=== PATIENT | male | born 1995 | race Caucasian/White ===

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

== ENCOUNTER 2017-03-05 06:16 | Emergency (ER) | payer BC ==
[~2017-03-05] VITALS: Ht 182.9 cm; Wt 60.0 kg
[2017-03-05 06:18] VITALS: BP 118/71; PULSE 78; RESP 16; TEMP 97.9; O2SAT 97
[2017-03-05] MEDS ORDERED: predniSONE 20 MG TAB PO ONE (07:15)
[2017-03-05] MEDS ORDERED: RESP: ALBUTEROL 2.5 MG/3 ML NEB (SCH) INH ONE ×2 (07:15→08:00)
[2017-03-05] MEDS ORDERED: VENTAER INH (07:17)
[2017-03-05] MEDS ORDERED: PRED-503 PO (07:17)
[2017-03-05] MEDS ORDERED: BENZ100 PO (07:17)
--- NOTE | 2017-03-05 07:18 | PD ---
HPI Chief Complaint: Cold / Flu Symptoms Time Seen by Provider: 07:07 Travel History International Travel<30 days: No Contact w/Intl Traveler<30days: No Traveled to known affect area: No History of Present Illness HPI 21-year-old male presents emergency Department with complaint of chest congestion, shortness of breath, nasal congestion, cough since yesterday. Unknown fever. Denies ear pain, sore throat. Denies chest pain. Denies abdominal pain, vomiting. Symptoms are mild in severity. Has not taken any medications or drainage from its alleviate symptoms. No known aggravating or relieving factors. Reports tobacco use. Denies significant past medical history. No known allergies. Has no other medical complaints. No other modifying factors or associated signs and symptoms. PFSH Past Medical History Asthma: Yes (OUTGROWN) Cancer: No Developmental Delay: No Diminished Hearing: No Glaucoma: No Musculoskeletal: Yes Neurologic: Yes Immunizations Current: No Past Surgical History Genitourinary Surgery: Yes (LEFT INGUINAL HERNIA REPAIR 2002) Neurologic Surgery: No Oral Surgery: Yes (ROOT CANAL RIGHT UPPER FRONT TOOTH ) Other Surgery: Yes Social History Alcohol Use: No Tobacco Use: No (never) Substance Use: Yes Allergies-Medications (Allergen,Severity, Reaction): Coded Allergies: No Known Allergies (Verified Adverse Reaction, Unknown, 03/05/17) Reported Meds & Prescriptions Reported Meds & Active Scripts Active Tessalon Perles (Benzonatate) 100 Mg Cap 100 Mg PO TID PRN 3 Days Ventolin Hfa 18 GM Inh (Albuterol Sulfate) 90 Mcg/Act Aer 2 Puff INH Q4-6H PRN Deltasone (Prednisone) 20 Mg Tab 40 Mg PO DAILY 4 Days start 03/06/2017 Review of Systems Except as stated in HPI: all other systems reviewed are Neg Physical Exam Narrative GENERAL: Well-nourished, well-developed male patient, in no acute distress; afebrile, nontoxic-appearing SKIN: Warm and dry. HEAD: Atraumatic. Normocephalic. EYES: Pupils equal and round. No scleral icterus. No injection or drainage. ENT: Mucosa pink and moist. No erythema or exudates. No uvular edema. No uvular , palatal, or tonsillar deviation. Airway patent. Nares without nasal blood. EARS: Bilateral pinnae and external canals appear within normal limits. Bilateral tympanic membranes without erythema, dullness or perforation. NECK: Trachea midline. No lymphadenopathy. CARDIOVASCULAR: Regular rate and rhythm. No murmur appreciated. RESPIRATORY: No accessory muscle use. Lungs with Wheezing throughout to auscultation. Breath sounds equal bilaterally. No retractions or tachypnea. No Audible wheezing noted. GASTROINTESTINAL: Abdomen soft, non-tender, nondistended. Hepatic and splenic margins not palpable. Bowel sounds are active 4 quadrants. MUSCULOSKELETAL: No obvious deformities. No clubbing. No cyanosis. No edema. NEUROLOGICAL: Awake and alert. Oriented 3. No obvious cranial nerve deficits. Motor grossly within normal limits. Normal speech. Moves all extremities. 5/5 strength to all extremities. PSYCHIATRIC: Appropriate mood and affect; insight and judgment normal. Data Data Last Documented VS Vital Signs Date Time Temp Pulse Resp B/P (MAP) Pulse Ox O2 Delivery O2 Flow Rate FiO2 03/05/17 06:40 Room Air 03/05/17 06:18 97.9 78 16 118/71 (87) 97 Orders Orders Chest, Single Ap (03/05/17 07:05) Prednisone (Deltasone) (03/05/17 07:15) Albuterol Neb (Albuterol Neb) (03/05/17 07:15) Influenzae A/B Antigen (03/05/17 07:05) Albuterol Neb (Albuterol Neb) (03/05/17 08:00) MDM Medical Decision Making Medical Screen Exam Complete: Yes Emergency Medical Condition: Yes Medical Record Reviewed: Yes Differential Diagnosis Bronchitis, pneumonia, influenza, viral illness Narrative Course 21-year-old male with symptoms of bronchitis. He denies history of asthma, although I reviewed his medical record showing history of asthma. Patient has wheezing throughout on auscultation of the lungs. He is in no acute distress and without retractions or tachypnea. Oxygen saturation is 97% on room air. Reports tobacco use. Albuterol nebulizer, chest x-ray, Deltasone, influenza ordered. 0747: Influenza negative. Patient reports improvement in symptoms. He still has some mild wheezing throughout on auscultation of the lungs. Second albuterol nebulizer ordered. 0815: As x-ray with no acute findings. Ventolin, Tessalon Perles, Deltasone prescribed for home. Instructed patient to follow up with primary care provider. Patient verbalizes understanding and agreement with treatment plan. Patient is medically cleared and stable for discharge. Discussed reasons to return to the emergency department. Patient agrees with treatment plan. The patients vital signs are stable and the patient is stable for outpatient follow- up and treatment. Patient discharged home, stable and in no acute distress. Diagnosis Primary Impression: Acute bronchitis Qualified Codes: J20.9 - Acute bronchitis, unspecified Referrals: [facility] Primary Care Physician Patient Instructions: Acute Bronchitis (ED), General Instructions, Safe Use of Cough and Cold Medicines (ED) Departure Forms: Tests/Procedures, Work Release Enter return to work date: Mar 06, 2017 Additional Instructions: Use Albuterol inhaler as prescribed Take oral steroids as prescribed and complete full course Use Tessalon Perles as prescribed to decrease coughing spasms [id number] decongestants or antihistamines as directed and as needed for symptom management Your cough can last 4-6 weeks Drink plenty of fluids to prevent dehydration Use hot air humidifier to decrease cough exacerbation Turn off ceiling fans and sleep with head of bed elevated Avoid triggers such as second hand smoke, dust, known allergens Follow-up with your primary care provider Return to the emergency department immediately with worsening of symptomsrest Med/Other Pt SpecificInfo: Prescription(s) given Scripts Benzonatate (Tessalon Perles) 100 Mg Cap 100 MG PO TID Y for COUGH for 3 Days, CAP 0 Refills Prov: Alyx Yancey 03/05/17 Albuterol 18 GM Inh (Ventolin Hfa 18 GM Inh) 90 Mcg/Act Aer 2 PUFF INH Q4-6H Y for SOB/WHEEZING, #1 INHALER 0 Refills Prov: Alyx Yancey 03/05/17 Prednisone (Deltasone) 20 Mg Tab 40 MG PO DAILY for 4 Days, #8 TAB 0 Refills start 03/06/2017 Prov: Alyx Yancey 03/05/17 Disposition: 01 DISCHARGE HOME Condition: Stable Alyx Yancey Mar 05, 2017 07:18
--- NOTE | 2017-03-05 07:58 | RADRPT ---
EXAM DATE/TIME: 03/05/2017 07:38 [place] COMPARISON: No previous studies available for comparison. INDICATIONS : Cough and congestion. MEDICAL HISTORY : None. SURGICAL HISTORY : None. ENCOUNTER: Initial ACUITY: 3 days PAIN SCORE: 0/10 LOCATION: Bilateral chest FINDINGS: A single view of the chest demonstrates the lungs to be symmetrically aerated without evidence of mas s, infiltrate or effusion. The cardiomediastinal contours are unremarkable. Osseous structures are intact. CONCLUSION: Normal examination. Preet Gonzalez MD on March 05, 2017 at 7:57 Board Certified Radiologist. This report was verified electronically.
== END 2017-03-05 08:30 | disposition home or self-care (01) ==
LOC: NEPD 06:16
DX: J20.9 Acute bronchitis, unspecified (principal); J45.909 Unspecified asthma, uncomplicated; Z72.0 Tobacco use
CPT/HCPCS: 71010; 87804; 94640; 94664; 99285; J7512; J7613